=== PATIENT | female | born 2000 | race Caucasian/White ===

== ENCOUNTER 2021-10-23 17:44 | Emergency (ER) | payer SELFPAY ==
[~2021-10-23] VITALS: Ht 157.5 cm; Wt 104.8 kg
[2021-10-23 18:16] VITALS: BP 108/66
--- NOTE | 2021-10-23 19:30 | NUR ---
CHELSY BANKS, FROM LAB, CALLED PT FOR LAB DRAW WITH NO RESPONSE.
== END 2021-10-23 20:57 | disposition left against medical advice (07) ==
LOC: MED 17:44
DX: R10.9 Unspecified abdominal pain (principal); R11.2 Nausea with vomiting, unspecified; R19.7 Diarrhea, unspecified; Z53.21 Procedure and treatment not carried out due to patient leaving prior to being seen by health care provider